=== PATIENT | male | born 1940 | race Caucasian/White ===

== ENCOUNTER 2016-06-18 15:09 | Inpatient (IN) | payer MEDICARE, BC ==
[2016-06-18] MEDS ORDERED: traMADol HCl 50 MG TAB PO PRN (18:15)
[2016-06-18] MEDS ORDERED: Vancomycin HCl 500 MG VIAL IVPB SCH (18:15)
[2016-06-18] MEDS ORDERED: Ondansetron ODT 4 MG TAB PO PRN (18:22)
[2016-06-18] MEDS ORDERED: Acetaminophen 325 MG TAB PO PRN (18:22)
[2016-06-18] MEDS ORDERED: Loperamide HCl 2 MG CAP PO PRN (18:22)
[2016-06-18] MEDS: Dabigatran 150 mg Capsule PO SCH (21:10)
[2016-06-18] MEDS: Atorvastatin Calcium 10 MG TAB PO SCH (21:10)
[2016-06-18] MEDS: Saccharomyces boulardii 250 MG CAP PO SCH (21:10)
--- NOTE | 2016-06-19 01:32 | HP ---
DATE OF ADMISSION: 06/18/2016 HISTORY OF PRESENT ILLNESS: Mr. Wiley is a very pleasant 75-year-old white male that was admitted i april with fever to [facility]. Two sets of blood cultures that yielded coag-negative St aphylococcus, thought to be contaminated. Eventually, was treated, went home. The patient did very poorly at home, became more short of breath, much more weaker. He eventually found his way back to the hospital and was noted be significantly hypotensive. He was admitted to the intensive care [facility] where he has had pressors, vancomycin, and Zosyn initially. Echo was done, which was unremarkable , but Dr. Paige saw the patient and felt he may have some type of endocarditis and vegetation, so [facility] did a transesophageal echo, which showed mitral valve vegetations. The patient had a PICC line p laced and is started on vancomycin 1250 mg every 24 hours. The patient had significant volume overl oad and has lost approximately 20 pounds of fluid, which is about 2.5 gallons. The patient's vancomycin stop date is on 07/27/2016. PAST MEDICAL HISTORY: Positive for: 1. Coronary artery disease. 2. Prior stents. 3. Pacemaker placement. 4. Hyperlipidemia. 5. Nonsustained ventricular tachycardia. 6. Aortic stenosis. 7. Aortic insufficiency. 8. Mitral valve vegetations. PAST SURGICAL HISTORY: 1. Gastric bypass in 2011. 2. Pacemaker placement in 2011. 3. Cardiac stents in 2011. 4. Bilateral hips replacement was done in [address] Go. 5. Bilateral shoulder replacements done in [address] Go. 6. Left knee replacement done in [address] Go. SOCIAL HISTORY: Reveals that the patient had smoked and stopped smoking approximately 35 years ago. He smoked for about 25 years, about 1 to 1-1/2 packs a day, which gives him about a 40-pack year h istory of smoking. FAMILY HISTORY: Reveals patient's father at the age of 88 of Parkinson disease. Patient's mot her at the age of 86 of coronary artery disease. Patient has 2 brothers that are healthy and tonio mason has 3 healthy children. He has no sisters. PRESENT MEDICATIONS: Reveal that the patient presently is on the following medications: 1. Vancomycin 1.25 grams IV every 24 hours until 07/27/2016. 2. Enteric coated aspirin 81 mg daily. 3. Lipitor 10 mg daily. 4. Calcium 600 mg daily. 5. Multivitamin 1 daily. 6. Pradaxa 150 mg b.i.d. 7. Multaq 400 mg b.i.d. 8. Ferrous sulfate 325 mg daily. 9. Lasix 40 mg daily. 10. Klor-Con 10 mEq b.i.d. 11. Omeprazole 40 mg daily. 12. Florastor 250 mg b.i.d. 13. Tramadol 50 mg t.i.d. p.r.n. for pain. ALLERGIES: The patient has no known drug allergies. REVIEW OF SYSTEMS: The patient states he has not recently had any fever or chills and he is feeling much improved. He has no nausea, vomiting, or diarrhea. Patient denies any upper respiratory cough, cold, or runny nose and allergies. The patient denies any vision changes or hearing changes. Patient denies any shortness of breath, cough, cold, congestion, or wheezing. Patient denies any chest pain, significant palpitations, racing or skipping or slow heartbeat. Rich es any claudication. He does state he gets significantly short of breath with much movement in ther apy. The patient denies any nausea, vomiting, or diarrhea, but he has had bariatric surgery and he can on ly eat small amounts of certain soft foods, we will start him on a mechanical soft diet. Patient denies any problems. The patient states he has extreme weakness and still has quite a bit of swelling. PHYSICAL EXAMINATION: GENERAL: This is a well-developed, well-nourished, slightly obese white male, in no apparent distre ss at this time VITAL SIGNS: Reveal blood pressure slightly low at 81/61, pulse 81, respirations 20, O2 saturation 100%, O2 flow rate is 2.5, temperature 98. HEENT: Reveals normocephalic, nontraumatic cranium. Pupils are equally round and reactive. Extrao cular movements intact. Nose and throat are slightly dry. NECK: Supple, without masses, nodes, or bruits. CHEST: Reveals no rales, rhonchi, or wheezes are heard. HEART: Reveals a large systolic murmur, seem like a holosystolic murmur 3/6. ABDOMEN: Obese, soft, and nontender without organomegaly, normal bowel sounds are noted. No reboun d or guarding is noted. GENITOURINARY EXAM: Deferred. EXTREMITIES: Reveal 2+ edema. NEUROLOGIC: Patient is oriented to person, place, and time. LABORATORY DATA AND X-RAY FINDINGS: Last laboratories revealed white count on the 30 was 10,000 w ith hemoglobin 9.0, hematocrit 28.8 and a platelet count of 172,000. His INR is 1.9 on 06/05/2016. Chemistry reveals a sodium of 140 this morning and potassium of 3.7 with a chloride of 107 and carbo n dioxide 28. His BUN 13 with a creatinine 1.44 and GFR is 81. ASSESSMENT: 1. Mitral valve vegetations. 2. Marked aortic stenosis. 3. Moderate mitral regurgitation. 4. Chronic illness with streptococcus mitis/oralis bacteremia. 5. Anemia. 6. Leukocytosis. 7. Ischemic cardiomyopathy with prior stenting. 8. Hyperlipidemia. 9. Gastroesophageal reflux disease. 10. Generalized weakness. 11. Clostridium difficile enteritis, resolved. 12. Generalized conditioning. 13. Chronic atrial fibrillation with current pacemaker and on anticoagulation with Pradaxa. 14. [id number] tricuspid regurgitation. 15. Cardiogenic shock secondary to sepsis, resolved. PLAN: 1. The patient will continue on vancomycin 1250 mg every 24 hours. We will have pharmacy to monitor that dose, adjust as needed and he will have his last dose on 07/27/2016. 2. Continue on patient's fluid status closely. 3. Continue to follow the patient's blood pressure. 4. Continue to follow the patient's oxygenation. 5. Continue physical therapy and occupation therapy. 6. Continue DVT and stress ulcer prophylaxis. 7. Continue decubitus precautions.
[2016-06-19 06:45] LABS: ALT (SGPT) 13 U/L (8-55); AST (SGOT) 27 U/L (5-34); Albumin 2.8 g/dL (3.4-4.8); Alkaline Phosphatase 71 U/L (40-150); Anion Gap 14 mmol/L (10-20); BUN (Urea Nitrogen) 15 mg/dL (8.4-25.7); Bilirubin, Total 1.5 mg/dL (0.2-1.2); Calc. Creatinine Clearance 50 mL/min (70-130); Calcium 8.3 mg/dL (7.8-10.44); Carbon Dioxide 25 mmol/L (23-31); Chloride 107 mmol/L (98-107); Estimated GFR-MDRD 44; Globulin 2.4 g/dL (2.4-3.5); Glucose 89 mg/dL (83-110); Potassium 4.2 mmol/L (3.5-5.1); Protein, Total 5.2 g/dL (5.8-8.1); Sodium 142 mmol/L (136-145)
[2016-06-19 06:48] LABS: #Basophils 0.1 thou/uL (0.0-0.2); #Eosinphils 0.1 thou/uL (0.0-0.7); #Lymphocytes 1.6 thou/uL (1.20-3.40); #Monocytes 0.6 thou/uL (0.11-0.59); %Basophils 0.9 % (0.0-1.0); %Eosinophils 0.6 % (0.0-10.0); %Lymphocytes 15.1 % (21.0-51.0); %Monocytes 6.2 % (0.0-10.0); %Neutrophils 77.2 % (42.0-75.0); Hemoglobin 9.3 g/dL (14.0-18.0); Mean Corpuscular HGB CONC 30.3 g/dL (32.0-36.0); Mean Corpuscular Hemoglobin 28.1 pg (27.0-31.0); Mean Corpuscular Volume 92.5 fl (80.0-94.0); Mean Platelet Volume 11.4 fL (7.4-10.4); Platelet Count 147 thou/uL (130-400); RBC Distribution Width 17.7 % (11.5-14.5); Red Blood Cell (RBC) Count 3.31 mill/uL (4.70-6.10); White Blood Cell (WBC) Count 10.4 thou/uL (4.8-10.8)
[2016-06-19 08:29] LABS: INR-International Normal Ratio 2.4; Prothrombin Time 26.9 SEC (12.0-14.7)
[2016-06-19 08:30] LABS: PTT 62.5 SEC (22.9-36.1)
[2016-06-19 08:31] LABS: Vancomycin, Trough 18.7 ug/mL
[2016-06-19] MEDS: Dabigatran 150 mg Capsule PO SCH ×2 (08:46→20:03)
[2016-06-19] MEDS: Calcium Carbonate + Vit D 1 TAB PO SCH (08:47)
[2016-06-19] MEDS: Furosemide 20 MG TAB PO SCH (08:47)
[2016-06-19] MEDS: Ferrous Sulfate 325 MG TAB PO SCH ×2 (08:47→17:22)
[2016-06-19] MEDS: Saccharomyces boulardii 250 MG CAP PO SCH ×2 (08:47→20:03)
[2016-06-19] MEDS: Potassium Chloride 10 MEQ TAB PO SCH ×2 (08:47→17:22)
[2016-06-19] MEDS: Aspirin 81 mg Enteric Coated Tablet PO SCH (08:48)
[2016-06-19] MEDS: Multivitamin W/ Minerals 1 TAB PO SCH (08:48)
[2016-06-19] MEDS: Dronedarone HCl 400 MG TAB PO SCH ×2 (08:48→17:23)
[2016-06-19] MEDS: Vancomycin HCl 750 MG in Sodium Chloride 0.9% 250 ML 250 ML IVPB SCH (09:09)
[2016-06-19] MEDS: Vancomycin HCl 500 MG in Sodium Chloride 0.9% 100 ML IVPB SCH (09:09)
--- NOTE | 2016-06-19 17:10 | PRG ---
DATE OF ADMISSION: 06/18/2016 DATE OF PROGRESS NOTE: 06/19/2016 HISTORY OF PRESENT ILLNESS: Mr. Wiley is a very pleasant 75-year-old white male that was transferre d from [facility] with 2 sets of coag-negative Staphylococcus. He was septic and found to be hypertensive. He was admitted to the Intensive Care Unit at [facility] where significantly he trotter d to have pressors, vancomycin and Zosyn initially. 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 The patient had a PICC line placed, was stabilized and started on vancomycin 1250 mg q.24 hours. The patient eventually was transferred here to [facility] for continued IV antibiotics and physical therapy and occupational therapy. SUBJECTIVE: The patient states he had a good day. He ate well and he worked hard in physical [employer], has no complaints, and states he feels much better. VITAL SIGNS: Revealed blood pressure this morning was low at 86/61 and rechecked, it was 97/68. Pulse is 80-93, respirations 18-22, O2 sat is 94%-99% on 2 liters. LABORATORY DATA: Laboratory this morning revealed white count 10,400 with a hemoglobin 9.3, hematoc rit 30.6, and platelet count 146,000. INR was 2.4. Sodium is 142, potassium 4.2, chloride 107, carbon dioxide 25 with a BUN of 15 and creatinine slight ly elevated at 1.55. Vancomycin trough this morning was 18.7. PHYSICAL EXAMINATION: GENERAL: This is a well-developed, well-nourished, pleasant white male in no apparent distress at t his time. HEENT: Reveals normocephalic, nontraumatic cranium. Pupils are equally round. Extraocular movemen ts intact. Nose and throat are slightly dry still. NECK: Supple, without masses, nodes or bruits. CHEST: Clear but distant breath sounds are noted and there are no rales, no rhonchi, and no wheezes are heard. The patient is not coughing. HEART: Heart has a loud 3/6 systolic ejection murmur, but is a regular rate and rhythm. ABDOMEN: Obese, soft, nontender, without organomegaly. Normal bowel sounds are noted. No rebound or guarding is noted. : Deferred. EXTREMITIES: Reveal continued 2+ edema, but seems to be slightly less in the upper extremities toda y. NEUROLOGIC: Patient is oriented to person, place, time, and situation. ASSESSMENT: 1. Mitral valve vegetations with sepsis. 2. Marked aortic stenosis. 3. Moderate mitral regurgitation. 4. Chronic illness with Streptococcus mitis oralis bacteremia. 5. Anemia. 6. Leukocytosis. 7. Ischemic cardiomyopathy with prior stenting. 8. Hyperlipidemia. 9. Gastroesophageal reflux disease. 10. Generalized weakness. 11. Clostridium difficile enteritis, resolved. 12. Generalized deconditioning. 13. Chronic atrial fibrillation with current pacemaker anticoagulation with Pradaxa. 14. Moderate to severe tricuspid regurgitation. 15. Cardiogenic shock secondary to sepsis, resolved. PLAN: 1. Continue the patient on vancomycin with the last dose on 07/27/2014. 2. Continue to follow the patient's fluid status. 3. Follow the patient's blood pressure. 4. Follow the patient's oxygenation. 5. Continue physical therapy and occupational therapy. 6. Continue DVT and stress ulcer prophylaxis. 7. Continue decubitus precautions.
[2016-06-19] MEDS: Atorvastatin Calcium 10 MG TAB PO SCH (20:03)
[2016-06-20] MEDS: Dabigatran 150 mg Capsule PO SCH ×2 (08:18→20:45)
[2016-06-20] MEDS: Potassium Chloride 10 MEQ TAB PO SCH ×2 (08:18→17:06)
[2016-06-20] MEDS: Aspirin 81 mg Enteric Coated Tablet PO SCH (08:18)
[2016-06-20] MEDS: Ferrous Sulfate 325 MG TAB PO SCH ×2 (08:18→17:07)
[2016-06-20] MEDS: Dronedarone HCl 400 MG TAB PO SCH ×2 (08:18→17:06)
[2016-06-20] MEDS: Multivitamin W/ Minerals 1 TAB PO SCH (08:18)
[2016-06-20] MEDS: Saccharomyces boulardii 250 MG CAP PO SCH ×2 (08:18→20:45)
[2016-06-20] MEDS: Furosemide 20 MG TAB PO SCH (08:18)
[2016-06-20] MEDS: Calcium Carbonate + Vit D 1 TAB PO SCH (08:18)
[2016-06-20] MEDS: Vancomycin HCl 500 MG in Sodium Chloride 0.9% 100 ML IVPB SCH (08:19)
[2016-06-20] MEDS: Vancomycin HCl 750 MG in Sodium Chloride 0.9% 250 ML 250 ML IVPB SCH (08:20)
--- NOTE | 2016-06-20 10:16 | PRG ---
DATE OF PROGRESS NOTE: 06/20/2016. HISTORY OF PRESENT ILLNESS: Mr. Wiley is a very pleasant 75-year-old white male transferred from [facility] with two blood cultures of coag-negative Staphylococcus. He was septic and hypert ensive. Initially, he spent several days in the Intensive Care Unit and have pressors, vancomycin a nd Zosyn. Eventually, found to have vegetations on the mitral valve and endocarditis. He had a PIC C line placed, stabilized and placed on vancomycin and was transferred here for continued physical t herapy, occupational therapy and IV antibiotics. SUBJECTIVE: The patient is found sitting on the side of the bed, stating he feels much better today . He states he has little less swelling and he is hungry. He has no complaints at all today. OBJECTIVE: VITAL SIGNS: Today reveal blood pressure is slightly low at 81/51. Pulse 80-90, respir ations 18, O2 saturations 95-100%. T-max is 98.1. PHYSICAL EXAMINATION: GENERAL: This is a well-developed, well-nourished, very pleasant white male, in no apparent distres s at this time. HEENT: Reveals normocephalic, nontraumatic cranium. Pupils are equal, round, and reactive. Extrao cular movements intact. Nose and throat are slightly dry. NECK: Supple, without masses, nodes or bruits. LUNGS: Chest is clear. He has distant breath sounds. There are no rales in his lower bases. The patient is not coughing, he has no rhonchi or wheezes heard. CARDIOVASCULAR: Regular rate and rhythm with a 3/6 systolic ejection murmur. ABDOMEN: Slightly obese, soft, nontender, without organomegaly, normal bowel sounds are noted. No rebound or guarding is noted. GENITOURINARY: Deferred. EXTREMITIES: Reveal continued 2+ edema, but seems to be slightly less again today. NEUROLOGIC: The patient is oriented to person, place, time, and very pleasant ASSESSMENT: 1. Mitral valve vegetations with sepsis, on long-term antibiotics. 2. Marked aortic stenosis. 3. Moderate mitral regurgitation. 4. Chronic illness with streptococcus mitis/oralis bacteremia, on long-term antibiotics. 5. Anemia. 6. Leukocytosis, improved. 7. Ischemic cardiomyopathy with prior stenting. 8. Hyperlipidemia. 9. Gastroesophageal reflux disease. 10. Generalized weakness. 11. Clostridium difficile enteritis, resolved. 12. Chronic atrial fibrillation with current pacemaker, anticoagulated with Pradaxa. 13. Moderate to severe tricuspid regurgitation. 14. Cardiogenic shock secondary to sepsis, resolved. PLAN: 1. Continue the patient on his vancomycin, last dose on 07/27/2016. 2. Continue to follow the patient's fluid status. 3. Continue follow the patient's blood pressure. 4. Continue all the patient's oxygenation. 5. Continue to follow the patient's physical therapy and occupational therapy. 6. Continue deep venous thrombosis and stress ulcer prophylaxes. 7. Continue decubitus precautions.
[2016-06-20] MEDS: Atorvastatin Calcium 10 MG TAB PO SCH (20:45)
[2016-06-21 08:13] LABS: Vancomycin, Trough 23.7 ug/mL
[2016-06-21] MEDS: Vancomycin HCl 750 MG in Sodium Chloride 0.9% 250 ML 250 ML IVPB SCH (08:36)
[2016-06-21] MEDS: Aspirin 81 mg Enteric Coated Tablet PO SCH (08:36)
[2016-06-21] MEDS: Vancomycin HCl 500 MG in Sodium Chloride 0.9% 100 ML IVPB SCH (08:36)
[2016-06-21] MEDS: Ferrous Sulfate 325 MG TAB PO SCH ×2 (08:36→17:34)
[2016-06-21] MEDS: Dronedarone HCl 400 MG TAB PO SCH ×2 (08:37→17:34)
[2016-06-21] MEDS: Dabigatran 150 mg Capsule PO SCH ×2 (08:37→21:16)
[2016-06-21] MEDS: Calcium Carbonate + Vit D 1 TAB PO SCH (08:37)
[2016-06-21] MEDS: Furosemide 20 MG TAB PO SCH (08:37)
[2016-06-21] MEDS: Potassium Chloride 10 MEQ TAB PO SCH ×2 (08:37→17:34)
[2016-06-21] MEDS: Saccharomyces boulardii 250 MG CAP PO SCH ×2 (08:37→21:16)
[2016-06-21] MEDS: Multivitamin W/ Minerals 1 TAB PO SCH (08:37)
--- NOTE | 2016-06-21 11:44 | PRG ---
DATE OF SERVICE: 06/21/2016 SUBJECTIVE: Mr. Wiley is a very pleasant 75-year-old white male transferred to [facility] after being septic and hypertensive. He has had 2 blood cultures growing coag negative Staphylococc us. He is on IV antibiotics, which consists of vancomycin until 07/27/2016. The patient states he is doing very well today. He has his and his daughter in the room with h im today. OBJECTIVE: Vital signs reveal blood pressure this morning is still slightly low at 82/53. Pulse is 86-99, respirations 18, O2 sat 90%-93% on 2 to 2 liters, T-max is 98.1. The patient states he feels much better today. GENERAL: Reveals a well-developed, well-nourished, very pleasant white male in no apparent distress at this time. HEENT: Reveals normocephalic, nontraumatic cranium. Pupils are equally round and reactive. Extrao cular movements intact. Nose and throat are slightly dry. NECK: Supple, without masses, nodes or bruits. LUNGS: Chest is clear to auscultation. No rales, rhonchi or wheezes are heard. Distant breath sheldon nds are noted. The patient does not have any weakness at all. CARDIOVASCULAR: Heart reveals a regular rate and rhythm with a 3/6 systolic ejection murmur. ABDOMEN: Slightly obese, soft, nontender, without organomegaly. Normal bowel sounds are noted. No rebound or guarding is noted. : Deferred. EXTREMITIES: Reveal continued 2+ edema in the lower extremities, but the edema has almost completel y gone on his upper extremities. NEUROLOGIC: Patient is oriented to person, place, time, and situation. ASSESSMENT: 1. Mitral valve vegetation with sepsis on long-term vancomycin until 07/27/2016. 2. Marked aortic stenosis. 3. Moderate mitral regurgitation. 4. Moderate severe tricuspid regurgitation. 5. Chronic atrial fibrillation with current pacemaker, anticoagulated with Pradaxa. 6. Cardiogenic shock secondary to sepsis, resolved. 7. 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 8. Anemia. 9. Leukocytosis, improved. 10. Ischemic cardiomyopathy with prior stenting. 11. Hyperlipidemia. 12. Gastroesophageal reflux disease. 13. Generalized weakness. 14. Clostridium difficile enteritis, resolved. PLAN: 1. Continue vancomycin with last dose on 07/27/2016. 2. Continue to follow the patient's fluid status. 3. Continue to follow the patient's blood pressure. 4. Continue the patient on oxygenation as needed. 5. Continue physical therapy and occupational therapy. 6. Continue deep venous thrombosis and stress ulcer prophylaxis. 7. Continue decubitus precautions.
[2016-06-21] MEDS: Atorvastatin Calcium 10 MG TAB PO SCH (21:16)
[2016-06-22] MEDS: Dronedarone HCl 400 MG TAB PO SCH ×2 (08:00→17:00)
[2016-06-22] MEDS: Ferrous Sulfate 325 MG TAB PO SCH ×2 (08:00→17:00)
[2016-06-22] MEDS: Potassium Chloride 10 MEQ TAB PO SCH ×2 (08:00→17:00)
[2016-06-22] MEDS ORDERED: Sodium Chloride 0.9% 250 ML 250 ML ONE (08:35)
[2016-06-22] MEDS: Sodium Chloride 0.9% 20 ML ONE ×2 (09:07→09:18)
[2016-06-22] MEDS: Dabigatran 150 mg Capsule PO SCH ×2 (09:11→21:44)
[2016-06-22] MEDS: Furosemide 20 MG TAB PO SCH (09:11)
[2016-06-22] MEDS: Aspirin 81 mg Enteric Coated Tablet PO SCH (09:13)
[2016-06-22] MEDS: Multivitamin W/ Minerals 1 TAB PO SCH (09:13)
[2016-06-22] MEDS: Saccharomyces boulardii 250 MG CAP PO SCH ×2 (09:13→21:44)
[2016-06-22] MEDS: Vancomycin HCl 1 GM in Sodium Chloride 0.9% 250 ML 250 ML IVPB SCH (09:16)
[2016-06-22] MEDS: Calcium Carbonate + Vit D 1 TAB PO SCH (09:17)
--- NOTE | 2016-06-22 10:29 | PRG ---
DATE OF SERVICE: 06/22/2016 HISTORY OF PRESENT ILLNESS: The patient is a very pleasant 75-year-old white male transferred from [facility] after being septic with hypertension. He had 2 blood cultures growing coag nega tive Staphylococcus. He was started on IV vancomycin and he will continue on that until 07/27/2016. The patient had some increased swelling in both of his legs today which is significantly different f rom yesterday. His stated that he sat up in a wheelchair all day long yesterday with his legs hanging down and there was significantly swelling last night and have not gone down completely. He continues to have daily weights. VITAL SIGNS: Vital signs this morning reveal a blood pressure 93/58, pulse 88-116, respirations 18- 20, O2 sat 91-100% on 2-1/2 liters. PHYSICAL EXAMINATION: GENERAL: This is a well-developed, well-nourished, very pleasant white male in no apparent distress at this time. HEENT: Reveals normocephalic, nontraumatic cranium. Pupils are equal, round, and reactive. Extrao cular movements intact. Nose and throat are slightly dry. NECK: Supple, without masses, nodes or bruits. LUNGS: Chest is clear to auscultation. No rales, rhonchi or wheezes are heard. Distant breath sheldon nds are noted. HEART: Reveals a regular rate and rhythm with a 3/6 systolic ejection murmur. ABDOMEN: Slightly obese, soft, nontender, without organomegaly. Normal bowel sounds are noted. No rebound or guarding is noted. GENITOURINARY: Deferred. EXTREMITIES: Reveals 3+ edema in lower extremities today. The patient still has a decreased edema in his upper extremities. NEUROLOGIC: The patient is oriented to person, place, time and situation. IMPRESSION: 1. Mitral valve vegetation with sepsis on long-term vancomycin until 07/27/2016. 2. Marked aortic stenosis. 3. Moderate mitral regurgitation. 4. Moderate to severe tricuspid regurgitation. 5. Chronic atrial fibrillation with current pacemaker and anticoagulated with Pradaxa. 6. History of cardiogenic shock secondary to sepsis, which has resolved. 7. Ischemic cardiomyopathy with prior stenting. 8. 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 9. Anemia. 10. Leukocytosis, improved. 11. Hyperlipidemia. 12. Gastroesophageal reflux disease. 13. Clostridium difficile, resolved. 14. Generalized weakness. PLAN: 1. Continue vancomycin through 07/27/2016. 2. Continue to follow the patient's fluid status. 3. Continue to follow the patient's blood pressure which is still low. 4. Continue patient on oxygenation p.r.n. 5. Continue physical therapy and occupational therapy. 6. Continue DVT and stress ulcer prophylaxis. 7. Continue decubitus precautions.
[2016-06-22] MEDS: Atorvastatin Calcium 10 MG TAB PO SCH (21:44)
[2016-06-23] MEDS ORDERED: Nitroglycerin 2% Ointment 1 INCH/1 GM Packet ONE ×2 (00:06→02:30)
[2016-06-23] MEDS: Ferrous Sulfate 325 MG TAB PO SCH ×2 (07:52→16:56)
[2016-06-23] MEDS: Dronedarone HCl 400 MG TAB PO SCH ×2 (07:52→16:56)
[2016-06-23] MEDS: Potassium Chloride 10 MEQ TAB PO SCH ×2 (07:52→16:56)
[2016-06-23] MEDS ORDERED: Sodium Chloride 0.9% 20 ML ONE (08:58)
[2016-06-23] MEDS: Vancomycin HCl 1 GM in Sodium Chloride 0.9% 250 ML 250 ML IVPB SCH (09:05)
[2016-06-23] MEDS: Calcium Carbonate + Vit D 1 TAB PO SCH ×2 (09:15→12:15)
[2016-06-23] MEDS: Dabigatran 150 mg Capsule PO SCH ×2 (09:15→21:12)
[2016-06-23] MEDS: Multivitamin W/ Minerals 1 TAB PO SCH (09:15)
[2016-06-23] MEDS: Furosemide 20 MG TAB PO SCH (09:15)
[2016-06-23] MEDS: Aspirin 81 mg Enteric Coated Tablet PO SCH (09:15)
[2016-06-23] MEDS: Saccharomyces boulardii 250 MG CAP PO SCH ×2 (09:15→21:12)
--- NOTE | 2016-06-23 13:41 | PRG ---
DATE OF SERVICE: 06/23/2016 HISTORY OF PRESENT ILLNESS: Mr. Wiley is a very pleasant 75-year-old white male transferred from [facility] after being septic with hypotension. He had 2 blood cultures growing coag negativ e staph. He was started on IV vancomycin. He essentially has vegetation growing on his aortic valve . The patient had significant increase in swelling yesterday; he still has a little bit today and is b eginning to slightly decrease. He has no oozing from his the lower extremities today. No complaint s today. VITAL SIGNS: Today reveal blood pressure 82/59, pulse 96, respirations 18, O2 sat 95% on 2 lite rs. Weight today is 192 pounds, yesterday was 198 pounds. His lowest has been 185 pounds. PHYSICAL EXAMINATION: GENERAL: Reveals a well-developed, well-nourished, very pleasant white male in no apparent distress at this time. HEENT: Reveals normocephalic, nontraumatic cranium. Pupils are equally round and reactive. Extrao cular movements intact. Nose and throat are slightly dry. NECK: Supple, without masses, nodes or bruits. LUNGS: Chest is clear to auscultation. No rales, rhonchi or wheezes are heard. CARDIOVASCULAR: Reveals a regular rate and rhythm without murmurs, gallops or rubs. A 3/6 systolic ejection murmur is noted. ABDOMEN: Slightly obese, soft, nontender, without organomegaly, normal bowel sounds are noted. No rebound or guarding is noted. GENITOURINARY: Deferred. EXTREMITIES: Reveal 3+ edema in lower extremities, but he has lost 3 [address] since [address] He [address] ill has decreased edema in his upper extremities. NEURO: He is oriented to person, place, time, and situation. IMPRESSION: 1. Mitral valve vegetation with sepsis on long-term vancomycin until 07/27/2016. 2. Marked aortic stenosis. 3. Moderate mitral regurgitation. 4. Moderate to severe tricuspid regurgitation. 5. Chronic atrial fibrillation with pacemaker, anticoagulated with Pradaxa. 6. History of cardiogenic shock secondary to sepsis, which is resolved. 7. Ischemic cardiomyopathy with prior stenting. 8. Chronic illness with Streptococcus midis/orales bacteremia on long-term vancomycin. 9. Anemia. 10. Leukocytosis. 11. Hyperlipidemia. 12. Gastroesophageal reflux. 13. Clostridium difficile. 14. Generalized weakness. PLAN: 1. Continue vancomycin to 07/27/2016. 2. Blood work tomorrow. 3. Continue patient's fluid status. 4. Continue to follow the patient's blood pressure which is still low. 5. Continue to follow the patient's oxygenation. 6. Continued physical therapy and occupational therapy. 7. Continue DVT and stress ulcer prophylaxis. 8. Continue decubitus precautions.
[2016-06-23] MEDS: Atorvastatin Calcium 10 MG TAB PO SCH (21:12)
[2016-06-24] MEDS: Multivitamin W/ Minerals 1 TAB PO SCH (08:28)
[2016-06-24] MEDS: Dabigatran 150 mg Capsule PO SCH ×2 (08:28→21:01)
[2016-06-24] MEDS: Dronedarone HCl 400 MG TAB PO SCH ×2 (08:29→17:32)
[2016-06-24] MEDS: Ferrous Sulfate 325 MG TAB PO SCH ×2 (08:29→17:32)
[2016-06-24] MEDS: Potassium Chloride 10 MEQ TAB PO SCH ×2 (08:29→17:32)
[2016-06-24] MEDS: Aspirin 81 mg Enteric Coated Tablet PO SCH (08:29)
[2016-06-24] MEDS: Saccharomyces boulardii 250 MG CAP PO SCH ×2 (08:29→21:01)
[2016-06-24] MEDS: Furosemide 20 MG TAB PO SCH (08:29)
[2016-06-24 08:35] LABS: Vancomycin, Trough 28.2 ug/mL
[2016-06-24 09:27] LABS: ALT (SGPT) 15 U/L (8-55); AST (SGOT) 32 U/L (5-34); Alkaline Phosphatase 69 U/L (40-150); Anion Gap 17 mmol/L (10-20); BUN (Urea Nitrogen) 34 mg/dL (8.4-25.7); Bilirubin, Total 1.8 mg/dL (0.2-1.2); Calc. Creatinine Clearance 43 mL/min (70-130); Calcium 8.8 mg/dL (7.8-10.44); Carbon Dioxide 24 mmol/L (23-31); Chloride 106 mmol/L (98-107); Estimated GFR-MDRD 35; Glucose 107 mg/dL (83-110); Potassium 4.6 mmol/L (3.5-5.1); Sodium 142 mmol/L (136-145)
[2016-06-24 09:44] LABS: #Basophils 0.1 thou/uL (0.0-0.2); #Eosinphils 0.1 thou/uL (0.0-0.7); #Lymphocytes 2.1 thou/uL (1.20-3.40); #Monocytes 0.7 thou/uL (0.11-0.59); #Neutrophils 9.9 thou/uL (1.40-6.50); %Eosinophils 0.4 % (0.0-10.0); %Monocytes 5.6 % (0.0-10.0); Anisocytosis SLIGHT = 6-15 cells (100X) (0-5/hpf); Hemoglobin 8.3 g/dL (14.0-18.0); Hypochromia SLIGHT = 6-15 cells (100X) (0-5/hpf); MDiff Complete? YES; Mean Corpuscular Hemoglobin 29.6 pg (27.0-31.0); Mean Corpuscular Volume 95.4 fl (80.0-94.0); Mean Platelet Volume 11.4 fL (7.4-10.4); PLT Morphology Comment Appears Adequate; Platelet Count 170 thou/uL (130-400); RBC Distribution Width 19.2 % (11.5-14.5); Red Blood Cell (RBC) Count 2.82 mill/uL (4.70-6.10); White Blood Cell (WBC) Count 12.9 thou/uL (4.8-10.8)
[2016-06-24] MEDS: Calcium Carbonate + Vit D 1 TAB PO SCH (12:30)
--- NOTE | 2016-06-24 15:47 | PRG ---
DATE OF SERVICE: 06/24/2016 DATE OF ADMISSION: 06/18/2016 HISTORY OF PRESENT ILLNESS: Mr. Wiley is a very pleasant 75-year-old white male that was initially admitted to [facility] with sepsis and hypotension. He was admitted to the intensive care unit and he grew out Staph, coag negative, thought to be bacteremic. He was started on IV vancomyci n and actually was found to have vegetation going on his aortic valve. He eventually was stabilized and transferred to [facility] swing bed for continued IV vancomycin, physical thera py and occupational therapy. He seems to be getting a little stronger every day and states he walked around the nurses' station w ith a couple rest, but he did walk around the nurses' station. VITAL SIGNS: Today reveal blood pressure this morning still continues to be low it was 80/52 and 82 /50. Pulse was 94-97, respirations 18, O2 sat 94% on 2 liters, temperature 97.5. Weight today was 192 pounds which is the same as yesterday. LABORATORY DATA: Today revealed white count 12,900, hemoglobin 8.3, hematocrit 26.9, platelet count 170,000. Patient's sodium was 142, potassium 4.6, chloride 106, carbon dioxide 24 with a BUN 34 an d creatinine of 1.88. Sugar was 107. Vancomycin trough this morning was 28.2 and the patient's van comycin is on hold at this time. PHYSICAL EXAMINATION: GENERAL: This is a well-developed, well-nourished, very pleasant white male in no apparent distress at this time. HEENT: Reveals normocephalic, nontraumatic cranium. Pupils are equally round and reactive. Extrao cular movements are intact. Nose and throat are slightly dry. NECK: Supple, without mass, nodes or bruits. LUNGS: Chest is clear. No rales, no rhonchi, no wheezes are heard. No crackles were heard in the bases posteriorly or laterally. HEART: Reveals a regular rate and rhythm with a 3/6 systolic ejection murmur. ABDOMEN: Slightly obese, soft, nontender, without organomegaly, normal bowel sounds are noted. No rebound or guarding is noted. Patient has had gastric sleeve in the past. : Deferred. EXTREMITIES: Reveals 2-3+ edema lower extremities. He is stable from his weight as of yesterday. Still has decreased edema in his upper extremities. NEUROLOGIC: He has no focal deficits and oriented to person, place, time, and situation. IMPRESSION: 1. Mitral valve vegetation with sepsis on long-term vancomycin until 07/27/2016. 2. Marked aortic stenosis. 3. Moderate mitral regurgitation. 4. Moderate to severe tricuspid regurgitation. 5. Chronic atrial fibrillation with pacemaker and anticoagulated with Pradaxa. 6. History of cardiogenic shock secondary to sepsis, which has resolved. 7. Ischemic cardiomyopathy with prior stenting. 8. Chronic illness with Streptococcus mitis/oralis bacteremia, on long-term vancomycin. 9. Anemia. 10. Leukocytosis. 11. Hyperlipidemia. 12. Gastroesophageal reflux. 13. Clostridium difficile. 14. Generalized weakness. PLAN: 1. Continue vancomycin until 07/27/2016. 2. Continue blood work every 3-4 days, most likely again on Wednesday. 3. Continue to follow patient's fluid status. 4. Follow the patient's blood pressure. 5. Follow the patient's oxygenation. 6. Continue physical therapy and occupational therapy. 7. Continue deep venous thrombosis and stress ulcer prophylaxis. 8. Continue decubitus precautions.
[2016-06-24] MEDS: Atorvastatin Calcium 10 MG TAB PO SCH (21:01)
[2016-06-25] MEDS: Aspirin 81 mg Enteric Coated Tablet PO SCH (08:33)
[2016-06-25] MEDS: Furosemide 20 MG TAB PO SCH (08:33)
[2016-06-25] MEDS: Saccharomyces boulardii 250 MG CAP PO SCH ×2 (08:33→21:43)
[2016-06-25] MEDS: Multivitamin W/ Minerals 1 TAB PO SCH (08:33)
[2016-06-25] MEDS: Ferrous Sulfate 325 MG TAB PO SCH ×2 (08:33→17:46)
[2016-06-25] MEDS: Dabigatran 150 mg Capsule PO SCH ×2 (08:33→21:44)
[2016-06-25] MEDS: Dronedarone HCl 400 MG TAB PO SCH ×2 (08:33→17:45)
[2016-06-25] MEDS: Potassium Chloride 10 MEQ TAB PO SCH ×2 (08:33→17:45)
[2016-06-25] MEDS: Vancomycin HCl 750 MG in Sodium Chloride 0.9% 250 ML 250 ML IVPB SCH (08:34)
[2016-06-25] MEDS: Calcium Carbonate + Vit D 1 TAB PO SCH (12:46)
--- NOTE | 2016-06-25 20:12 | PRG ---
DATE OF ADMISSION: 06/18/2016 DATE OF PROGRESS NOTE: 06/25/2016 HISTORY OF PRESENT ILLNESS: Mr. Wiley is a very pleasant 75-year-old white male who initially admit patricia to [facility] with sepsis and hypotension. The patient grew out two staph in his blood. He was found to have vegetations on his aortic valve. He was started on IV vancomycin and transferred to [facility] for continued IV vanc omycin for physical therapy and occupational therapy. The patient states he thinks he is getting a little bit stronger. He did walk around the quad at e nurse's station, but he had to stop 3 times, but that is much improved. He has no complaints today. VITAL SIGNS: Today reveal blood pressure is still low at 87/48, pulse 77, respirations 18, O2 sat 9 8%-100% on 2-1/2 liters, T-max is 97.5. Weight today is 93.8 which is up half of a pound from yeste rday. PHYSICAL EXAMINATION: GENERAL: This is a well-developed, well-nourished, frail white male in no apparent distress at this time. HEENT: Reveals normocephalic, nontraumatic cranium. Pupils are equally round and reactive. Extrao cular movements intact. Nose and throat are clear, but dry. NECK: Supple, without masses, nodes or bruits. CHEST: Clear to auscultation. No rales, no rhonchi, no wheezes are heard. No crackles are heard a t his bases or lateral chest wall. HEART: Reveals a regular rate and rhythm with a 3/6 systolic ejection murmur. ABDOMEN: Still slightly obese, soft, nontender, without organomegaly. Normal bowel sounds are note d. No rebound or guarding is noted. : Deferred. EXTREMITIES: Reveal 2-3+ edema lower extremities still. The patient still has decreased edema in h is upper extremities. NEUROLOGIC: He has no focal deficits. PSYCHOLOGIC: He is oriented to person, place, time, and situation. ASSESSMENT: 1. 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 2. Marked aortic stenosis. 3. Moderate mitral regurgitation. 4. Moderate to severe tricuspid regurgitation. 5. Chronic atrial fibrillation with pacemaker, anticoagulated on Pradaxa. 6. History of cardiogenic shock secondary to sepsis, which is resolved. 7. Ischemic cardiomyopathy with prior stenting. 8. 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 9. Anemia. 10. Leukocytosis. 11. Hyperlipidemia. 12. Gastroesophageal reflux disease. 13. Clostridium difficile. 14. Generalized weakness. PLAN: 1. Continue vancomycin until 07/27/2016. 2. Continue blood work every 3-4 days, most likely again on Wednesday. 3. Follow the patient's fluid status. 4. Follow the patient's blood pressure. 5. Follow the patient's oxygenation. 6. Continue physical therapy and occupational therapy. 7. Continue DVT and stress ulcer prophylaxis. 8. Continue decubitus precautions.
[2016-06-25] MEDS: Atorvastatin Calcium 10 MG TAB PO SCH (21:44)
[2016-06-26] MEDS ORDERED: Sodium Chloride 0.9% 20 ML ONE (08:16)
[2016-06-26] MEDS: Ferrous Sulfate 325 MG TAB PO SCH ×2 (08:21→16:57)
[2016-06-26] MEDS: Saccharomyces boulardii 250 MG CAP PO SCH ×2 (08:21→20:58)
[2016-06-26] MEDS: Multivitamin W/ Minerals 1 TAB PO SCH (08:21)
[2016-06-26] MEDS: Aspirin 81 mg Enteric Coated Tablet PO SCH (08:21)
[2016-06-26] MEDS: Vancomycin HCl 750 MG in Sodium Chloride 0.9% 250 ML 250 ML IVPB SCH (08:22)
[2016-06-26] MEDS: Potassium Chloride 10 MEQ TAB PO SCH ×2 (08:22→16:57)
[2016-06-26] MEDS: Furosemide 20 MG TAB PO SCH (08:22)
[2016-06-26] MEDS: Dronedarone HCl 400 MG TAB PO SCH ×2 (08:22→16:57)
[2016-06-26] MEDS: Dabigatran 150 mg Capsule PO SCH ×2 (08:22→20:58)
[2016-06-26] MEDS: Calcium Carbonate + Vit D 1 TAB PO SCH (11:42)
--- NOTE | 2016-06-26 16:35 | PRG ---
DATE OF SERVICE: 06/26/2016 DATE OF ADMISSION: 06/18/2016 SUBJECTIVE: Mr. Wiley is a very pleasant 75-year-old white male who was admitted to [place] with sepsis and hypotension. The patient grew out 2 Streptococcus variance of Streptococcus mitis and Streptococcus oralis bacter emia in his blood. The patient was started on long-term vancomycin. The patient eventually was tra [facility]red to [facility] for continued IV vancomycin for physical therapy and occupati onal therapy. The patient is to continue his vancomycin until 07/27/2016. PHYSICAL EXAMINATION: VITAL SIGNS: Today reveal blood pressure this morning was 86/50, pulse 94-109, respirations 22, O2 sat 98%, oxygen flow rate is 2.5, temperature 95.8. Weight this morning was 191 and 3 ounces, which is 2 pounds and 5 ounces below the weight of yesterday. GENERAL: This is a well-developed, well-nourished, very pleasant white male in no apparent distress at this time. HEENT: Reveals normocephalic, nontraumatic cranium. Pupils are equally round and reactive. Extrao cular movements intact. Nose and throat are slightly dry. NECK: Supple, without masses, nodes or bruits. CHEST: Clear to auscultation. No rales, rhonchi, wheezes or cough is heard. HEART: Reveals a regular rate and rhythm without gallops or rubs. He does have a 3/6 systolic ejec tion murmur. ABDOMEN: Slightly obese, soft, nontender, without organomegaly. Normal bowel sounds are noted. No rebound or guarding is noted. GENITOURINARY: Exam is deferred. EXTREMITIES: The patient has 2-3+ edema in the lower extremities. The patient has no edema in his upper extremities. He has been sitting up all day with his feet hanging down from the bed and his w heelchair and outside and so he has much more swelling than his usual. He does have some weeping fr om his legs this afternoon. NEUROLOGIC: The patient has no focal deficits. PSYCHOLOGIC: The patient is oriented to person, place, time, and situation. ASSESSMENT: 1. Aortic and mitral valve regurgitation with sepsis on long-term vancomycin until 07/27/2016. 2. Marked aortic stenosis. 3. Moderate mitral regurgitation. 4. [id number] tricuspid regurgitation. 5. Atrial fibrillation with pacemaker and anticoagulated on Pradaxa. 6. History of cardiogenic shock secondary to sepsis, which is resolved. 7. Ischemic cardiomyopathy with prior stenting. 8. Chronic illnesses with Streptococcus mitis/oralis bacteremia on long-term vancomycin until 07/27. 9. Anemia. 10. Leukocytosis. 11. Hyperlipidemia. 12. Gastroesophageal reflux. 13. Clostridium difficile, resolved. 14. Generalized weakness. PLAN: 1. Continue vancomycin until 07/27/2016. 2. Continue blood work every 3-4 days, most likely again on Wednesday. 3. Continue to follow patient's fluid status. 4. Continue to follow the patient's blood pressure. 5. Continue to follow the patient's oxygenation. 6. Continue physical therapy and occupational therapy. 7. Continue DVT and stress ulcer prophylaxis. 8. Continue decubitus precautions.
[2016-06-26] MEDS: Atorvastatin Calcium 10 MG TAB PO SCH (20:58)
[2016-06-27] MEDS: Dronedarone HCl 400 MG TAB PO SCH ×2 (08:05→17:02)
[2016-06-27] MEDS: Potassium Chloride 10 MEQ TAB PO SCH ×2 (08:05→17:02)
[2016-06-27] MEDS: Ferrous Sulfate 325 MG TAB PO SCH ×2 (08:05→17:02)
[2016-06-27 08:17] LABS: Hemoglobin 7.1 g/dL (14.0-18.0); Platelet Count 161 thou/uL (130-400)
[2016-06-27 08:32] LABS: Vancomycin, Trough 24.8 ug/mL
[2016-06-27] MEDS ORDERED: Sodium Chloride 0.9% 20 ML ONE (08:33)
[2016-06-27] MEDS: Saccharomyces boulardii 250 MG CAP PO SCH ×2 (09:07→20:38)
[2016-06-27] MEDS: Multivitamin W/ Minerals 1 TAB PO SCH (09:07)
[2016-06-27] MEDS: Aspirin 81 mg Enteric Coated Tablet PO SCH (09:07)
[2016-06-27] MEDS ORDERED: Furosemide 40 MG TAB ONE (09:07)
[2016-06-27] MEDS: Dabigatran 150 mg Capsule PO SCH (09:07)
[2016-06-27] MEDS: Furosemide 20 MG TAB PO SCH (09:09)
[2016-06-27 11:09] LABS: Anion Gap 17 mmol/L (10-20); BUN (Urea Nitrogen) 44 mg/dL (8.4-25.7); Calc. Creatinine Clearance 31 mL/min (70-130); Calcium 8.7 mg/dL (7.8-10.44); Carbon Dioxide 23 mmol/L (23-31); Chloride 101 mmol/L (98-107); Estimated GFR-MDRD 25; Glucose 111 mg/dL (83-110); Potassium 5.1 mmol/L (3.5-5.1); Sodium 136 mmol/L (136-145)
[2016-06-27 11:15] LABS: #Basophils 0.1 thou/uL (0.0-0.2); #Lymphocytes 1.3 thou/uL (1.20-3.40); #Monocytes 0.7 thou/uL (0.11-0.59); #Neutrophils 8.3 thou/uL (1.40-6.50); %Basophils 0.6 % (0.0-1.0); %Eosinophils 0.2 % (0.0-10.0); %Lymphocytes 12.3 % (21.0-51.0); %Monocytes 7.1 % (0.0-10.0); %Neutrophils 79.9 % (42.0-75.0); Hemoglobin 7.1 g/dL (14.0-18.0); Mean Corpuscular HGB CONC 30.2 g/dL (32.0-36.0); Mean Corpuscular Hemoglobin 29.6 pg (27.0-31.0); Mean Corpuscular Volume 97.9 fl (80.0-94.0); Mean Platelet Volume 12.2 fL (7.4-10.4); Platelet Count 185 thou/uL (130-400); RBC Distribution Width 19.7 % (11.5-14.5); Red Blood Cell (RBC) Count 2.39 mill/uL (4.70-6.10); White Blood Cell (WBC) Count 10.4 thou/uL (4.8-10.8)
[2016-06-27] MEDS: Calcium Carbonate + Vit D 1 TAB PO SCH (12:00)
--- NOTE | 2016-06-27 13:18 | RAD ---
PORTABLE CHEST: 06/27/16. PROVIDED CLINICAL HISTORY: Shortness of breath. FINDINGS: Comparison 06/08/16. The cardiac and mediastinal silhouette is unchanged in appearance. Prominence of the pulmonary vasculature and pulmonary interstitium persists. No focal consolidation, pleural f luid, or pneumothorax apparent. Left subclavian cardiac pacing device and bilateral shoulder arthro plasty changes redemonstrated. IMPRESSION: Findings suggesting congestive failure. POS: ROSSANA
--- NOTE | 2016-06-27 14:37 | PRG ---
DATE OF SERVICE: 06/27/2016 SUBJECTIVE: Patient is a 75-year-old white male with a history of streptococcal subendocardial bact erial endocarditis as well as significant aortic mitral valve regurgitation, chronic atrial fibrilla tion on Pradaxa, recent sepsis with cardiogenic shock, significant or ischemic cardiomyopathy who is on vancomycin until 07/27/2016, he has had significant fluid overload prior to admission and has be en slowly losing weight, but still has significant edema, but denies any dyspnea at rest, has only t wo-pillow orthopnea, denies any chest pain or palpitations. OBJECTIVE: Shows his intake and output has been negative with a 7 pound weight loss since admission , he has developed however new problem of significant anemia with hemoglobin that dropped from 9.3 o n admission to 8.3 three days ago to 7.1; today, he denied any bruising or bleeding. He is on howev er Pradaxa. His creatinine also has increased from 1.55 to 2.56, GFR decreased from 44 to 25. BNP is 2156. Sodium is 142, potassium 4.6, chloride 106, bicarbonate 24; recently, he is on vancomycin 500 daily, it has been decreased this morning from 750 daily. He is also on Protonix 40 daily, furo semide 40 daily, dabigatran 150 twice daily. His lungs appeared to be clear. Cardiac examination s hows a 3-4/6 mitral regurgitation, murmur spell is an aortic insufficiency murmur. There is irregul marcelo irregular rhythm. Skin and extremities showed severe 3+ edema. Patient is on heart healthy di et. ASSESSMENT: 1. New onset of anemia, possibly due to gastrointestinal bleed from the Pradaxa. 2. Acute on chronic renal failure possibly due to gastrointestinal bleed. Possibly due to decrease d cardiac function, patient has severe elevation of BNP and this has significantly worsened over the last month. PLAN: Guaiac all stools. Discontinue Pradaxa. Obtain chest x-ray today. Electrolytes today, repe at base met profile and CBC in the a.m. Guaiac all stools. Repeat BNP in the a.m. and may need to transfer if he begins to have signs of decompensation congestive heart failure.
[2016-06-27 19:24] LABS: ALT (SGPT) 20 U/L (8-55); AST (SGOT) 35 U/L (5-34); Albumin 2.9 g/dL (3.4-4.8); Alkaline Phosphatase 69 U/L (40-150); Anion Gap 17 mmol/L (10-20); BUN (Urea Nitrogen) 47 mg/dL (8.4-25.7); Calc. Creatinine Clearance 30 mL/min (70-130); Calcium 8.6 mg/dL (7.8-10.44); Carbon Dioxide 22 mmol/L (23-31); Chloride 101 mmol/L (98-107); Estimated GFR-MDRD 23; Globulin 2.3 g/dL (2.4-3.5); Glucose 116 mg/dL (83-110); Potassium 5.2 mmol/L (3.5-5.1); Protein, Total 5.2 g/dL (5.8-8.1); Sodium 135 mmol/L (136-145)
[2016-06-27] MEDS: Atorvastatin Calcium 10 MG TAB PO SCH (20:38)
[2016-06-27] MEDS ORDERED: Vancomycin HCl 500 MG in Sodium Chloride 0.9% 100 ML IVPB SCH (21:00)
[2016-06-28 05:12] LABS: #Basophils 0.1 thou/uL (0.0-0.2); #Lymphocytes 1.3 thou/uL (1.20-3.40); #Monocytes 0.7 thou/uL (0.11-0.59); #Neutrophils 7.7 thou/uL (1.40-6.50); %Basophils 0.5 % (0.0-1.0); %Eosinophils 0.5 % (0.0-10.0); %Lymphocytes 13.3 % (21.0-51.0); %Monocytes 7.1 % (0.0-10.0); %Neutrophils 78.6 % (42.0-75.0); MDiff Complete? YES; Mean Corpuscular HGB CONC 32.3 g/dL (32.0-36.0); Mean Corpuscular Hemoglobin 30.7 pg (27.0-31.0); Mean Platelet Volume 10.4 fL (7.4-10.4); Ovalocytes SLIGHT = 2-5 cells (100X) (0-1/hpf); PLT Morphology Comment Appears Adequate; Platelet Count 153 thou/uL (130-400); RBC Distribution Width 18.6 % (11.5-14.5); Target Cells SLIGHT = 2-5 cells (100X) (0-1/hpf); Tear Drops SLIGHT = 2-5 cells (100X) (0-1/hpf); White Blood Cell (WBC) Count 9.8 thou/uL (4.8-10.8)
[2016-06-28 05:19] LABS: INR-International Normal Ratio 2.7; Prothrombin Time 29.8 SEC (12.0-14.7)
[2016-06-28 05:31] LABS: ALT (SGPT) 20 U/L (8-55); AST (SGOT) 35 U/L (5-34); Albumin 2.9 g/dL (3.4-4.8); Alkaline Phosphatase 75 U/L (40-150); Anion Gap 15 mmol/L (10-20); BUN (Urea Nitrogen) 47 mg/dL (8.4-25.7); Bilirubin, Total 1.9 mg/dL (0.2-1.2); Calc. Creatinine Clearance 29 mL/min (70-130); Calcium 8.6 mg/dL (7.8-10.44); Carbon Dioxide 24 mmol/L (23-31); Chloride 102 mmol/L (98-107); Estimated GFR-MDRD 22; Globulin 2.3 g/dL (2.4-3.5); Glucose 108 mg/dL (83-110); Potassium 5.3 mmol/L (3.5-5.1); Protein, Total 5.2 g/dL (5.8-8.1); Sodium 136 mmol/L (136-145)
[2016-06-28 06:08] VITALS: BMI 25.7
[2016-06-28 07:17] VITALS: BP 81/53; TEMP 98
--- NOTE | 2016-06-28 07:51 | RAD ---
CHEST 1 VIEW: HISTORY: CHF. Dyspnea. Followup. COMPARISON: 06/27/16. FINDINGS: The cardiac silhouette is magnified. Pulmonary vasculature remains engorged with patchy areas of pa renchymal opacity throughout each lung similar in appearance to the prior study. Mediastinum is mid line with dual-lead left subclavian cardiac electronic device. Left upper extremity PICC is in plac e. Bilateral shoulder prostheses are again demonstrated. IMPRESSION: Pulmonary vascular congestion and other findings appear stable. POS: ROSSANA
[2016-06-28] MEDS: Aspirin 81 mg Enteric Coated Tablet PO SCH (08:23)
[2016-06-28] MEDS: Dronedarone HCl 400 MG TAB PO SCH (08:23)
[2016-06-28] MEDS: Ferrous Sulfate 325 MG TAB PO SCH (08:23)
[2016-06-28] MEDS: Multivitamin W/ Minerals 1 TAB PO SCH (08:23)
[2016-06-28] MEDS: Furosemide 20 MG TAB PO SCH (08:23)
[2016-06-28] MEDS: Saccharomyces boulardii 250 MG CAP PO SCH (08:23)
[2016-06-28] MEDS: Potassium Chloride 10 MEQ TAB PO SCH (08:25)
--- NOTE | 2016-06-28 12:17 | DIS ---
DATE OF ADMISSION: To [facility] unit, on 06/18/2016 DATE OF DISCHARGE: 06/28/2016 FINAL DIAGNOSES: 1. Exacerbation of congestive heart failure with increased BNP, increased edema, persistent hypoten eugene despite treatment for endocarditis and diuretic treatment. 2. Aortic valve stenosis, severe with hypotension, asymptomatic. 3. Mitral valve endocarditis with Streptococcus mitis, severe with pulmonary congestion. 4. Chronic atrial fibrillation with pacemaker, on Pradaxa. 5. Gastric bypass with subsequent recurrent anemia with anemia present again at this time requiring transfusion, hemoglobin down to 7. 6. Generalized weakness, improving slightly. 7. Clostridium difficile enteritis, resolved. HOSPITAL COURSE: The patient is a 75-year-old white male patient of Dr. Ojeda and Dr. Olson, who was found to have fever and septic shock last month at [place], subsequently diagnosed with Stre ptococcus endocarditis with vegetations of the mitral valve. At that time, he had an echocardiogram done, which showed 60% ejection fraction and diastolic dysfunction with calculated aortic valve are a of 0.69. He was started on treatment with vancomycin 1.25 grams IV q.24 hours and transferred to [place] for physical therapy. At that time, he was on Pradaxa 150 mg twice daily, Multaq 400 twice d aily, ferrous sulfate 325 twice daily and aspirin 81 daily, as well as Lasix 40 daily. On admission to [place], his blood pressure was chronically low ranging from 80-96, pulse was 103 on 2.5 liters. His lungs showed few crackles in the bases. Cardiac examination showed a 3/6 systolic ejection mur mur at the base and a 2/6 holosystolic murmur at the apex. There were 1-2+ edema. His weight was 1 88 pounds. He was continued on his Lasix 40 daily and vancomycin; started on physical therapy and w as tolerating physical therapy, but continued to have significant peripheral edema, somewhat limitin g his therapy. He also remained significantly hypotensive with blood pressure ranging down to 69/50 on discharge. His O2 saturation was 93% on 2.5 liters; however, his renal function on admission sh owed creatinine of 1.44 and GFR of 48, but it slowly worsened, creatinine increasing to 2.55 and to 2.69, 2.78, GFR decreasing to 22. His BNP on admission was 1300 at [place], but was found to hav e increased to 2100 last week at [place] and has progressively increased to 3144 on transfer to [facility]. He has had increasing edema up to 4+ to the thighs. Chest x-rays continued to show pulmonar y congestion with no real change, but he has been unable to do physical therapy. The patient denies any symptoms of chest pain, palpitations at this time, but has 2-3 pillow orthopnea and remained si tting up in his bed at all times. It is felt that he requires transfer to [place] for telemetry and for possible pressor support while he is aggressively diuresed as he is beginning to retain flui d again and his valvular heart disease with superimposed endocarditis may be worsening. His prognos is is very poor. He is a FULL CODE and therefore, will be transferred back to [place] for Cardio logy and Renal consult and hopefully stabilization of his cardiopulmonary status.
== END 2016-06-28 11:37 | disposition short-term general hospital (02) | DRG 871 ==
LOC: NAV ACUTE 15:09
PROVIDERS: ADMIT Family Medicine; ATTEND Family Medicine
PROC: 30233N1 Transfusion of Nonautologous Red Blood Cells into Peripheral Vein, Percutaneous Approach (ICD-10-PCS; principal; 2016-06-27)
DX: A41.9 Sepsis, unspecified organism (principal); I33.0 Acute and subacute infective endocarditis; R65.21 Severe sepsis with septic shock; N17.9 Acute kidney failure, unspecified; A04.7 Enterocolitis due to Clostridium difficile; I50.9 Heart failure, unspecified; D64.9 Anemia, unspecified; I34.0 Nonrheumatic mitral (valve) insufficiency; I25.10 Atherosclerotic heart disease of native coronary artery without angina pectoris; Z95.5 Presence of coronary angioplasty implant and graft; Z95.0 Presence of cardiac pacemaker; E78.5 Hyperlipidemia, unspecified; Z87.891 Personal history of nicotine dependence; I35.0 Nonrheumatic aortic (valve) stenosis; K21.9 Gastro-esophageal reflux disease without esophagitis; E66.9 Obesity, unspecified; I48.2 Chronic atrial fibrillation; I25.5 Ischemic cardiomyopathy; Z98.84 Bariatric surgery status; I08.3 Combined rheumatic disorders of mitral, aortic and tricuspid valves; Z79.01 Long term (current) use of anticoagulants; B95.4 Other streptococcus as the cause of diseases classified elsewhere
CPT/HCPCS: 36415; 36430; 71010; 80053; 80202; 82274; 82565; 83880; 85014; 85018; 85025; 85049; 85610; 85730; 86850; 86900; 86901; A4216; C1751; J3370; J7050; P9016